=== PATIENT | male | born 1980 | race Caucasian/White ===

== ENCOUNTER 2019-06-20 00:34 | Emergency (ER) | payer MEDICARE, MEDICAID ==
--- NOTE | 2019-06-20 01:02 | ER Document Report ---
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 This is having hard to go to the bathroom today stubble starting and stopping and dribbling, and feeling like he still full after urinating. Little bit of burning as well. No penile lesions. Sexually active but no history of STIs. Mild super pubic discomfort but no fever or back pain. TRAVEL OUTSIDE OF THE [place] IN LAST 30 DAYS: No - Related Data Allergies/Adverse Reactions: amoxicillin [Amoxicillin] Allergy (Intermediate, Verified 06/20/19 00:35) rash Penicillins Allergy (Mild, Verified 06/20/19 00:35) rash Past Medical History - Social History Smoking Status: Current Every Day Smoker Drug Abuse: Marijuana Family History: Reviewed & Not Pertinent - Past Medical History Cardiac Medical History: Denies: Hx Coronary Artery Disease, Hx Heart Attack, Hx Hypertension Pulmonary Medical History: Denies: Hx Asthma, Hx Bronchitis, Hx COPD, Hx Pneumonia Neurological Medical History: Denies: Hx Cerebrovascular Accident, Hx Seizures Musculoskeletal Medical History: Denies Hx Arthritis Past Surgical History: Reports: Hx Tonsillectomy. Denies: Hx Pacemaker - Immunizations Hx Diphtheria, Pertussis, Tetanus Vaccination: Yes - denies pneumonia Review of Systems - Review of Systems Notes: REVIEW OF SYSTEMS GEN: Denies fever, chills, weight loss ENT: Denies sore throat, nasal discharge, ear pain EYES: Denies blurry vision, eye pain, discharge CV: Denies chest pain, palpitations, edema RESP: Denies cough, shortness of breath, wheezing GI: Suprapubic pain dysuria MSK: Denies joint pain/swelling, edema, SKIN: Denies rash, skin lesions LYMPH: Denies swollen glands/lymph nodes NEURO: Denies headache, focal weakness or numbness, dizziness PSYCH: Denies depression, suicidal or homicidal ideation PHYSICAL EXAMINATION General: No acute distress, well-nourished Head: Atraumatic, normocephalic ENT: Mouth normal, oropharynx moist, no exudates or tonsillar enlargement Eyes: Conjunctiva normal, pupils equal, lids normal Neck: No JVD, supple, no guarding CVS: Normal rate, regular rhythm, no murmurs Resp: No resp distress, equal and normal breath sounds bilaterally GI: Nondistended, soft, minimal superpubic tenderness to palpation, no rebound or guarding male: Normal penis and scrotum no discharge no tenderness no lymphadenopathy Ext: No deformities, no edema, normal range of motion in upper and lower ext Back: No CVA or midline TTP Skin: No rash, warm Lymphatic: No lymphadeopathy noted Neuro: Awake, alert. Face symmetric. GCS 15. Physical Exam - Vital signs Vitals: Temp Pulse Resp BP Pulse Ox 98.2 F 88 20 151/93 H 96 06/20/19 00:36 06/20/19 00:36 06/20/19 00:36 06/20/19 00:36 06/20/19 00:36 Course - Re-evaluation Re-evalutation: 06/20/19 02:43 Patient presents with urinary hesitancy and dysuria, sexually active. Post void normal. Likely bladder spasm/lower urinary tract irritation. His urinalysis is positive for white cells which likely reflects urethritis rather than a tooth true cystitis. We will treat with Rocephin and azithromycin "get gonorrhea chlamydia discharge. I have discussed with the patient there likely diagnosis, aftercare plan, follow-up plans and my usual and customary return precautions. They verbalized understanding of this. - Vital Signs Vital signs: Temp Pulse Resp BP Pulse Ox 98.2 F 88 20 151/93 H 96 06/20/19 00:36 06/20/19 00:36 06/20/19 00:36 06/20/19 00:36 06/20/19 00:36 - Laboratory Laboratory results interpreted by me: 06/20/19 02:13 Urine Protein 30 H Urine Ketones TRACE H Urine Blood SMALL H Urine Urobilinogen 2.0 H Ur Leukocyte Esterase MODERATE H Discharge - Discharge Clinical Impression: Dysuria Condition: Good Disposition: HOME, SELF-CARE Instructions: Urethritis ([facility]) Additional Instructions: We have sent chlamydia and gonorrhea testing for you and would not be ready for at least 24 hours. Please call for your results. Please use protection each time you have sex. Please return to the emergency room for worsening urinary problems or fever. Please follow-up with your regular doctor in 1 week. Referrals: ANISH NUNO DO [Primary Care Provider] - Follow up as needed
[2019-06-20] MEDS ORDERED: CEFTRIAXONE INJ 250 MG VIAL IM ONE (02:07)
[2019-06-20] MEDS ORDERED: AZITHROMYCIN 1 GM SUSP PACKET PO ONE (02:07)
[2019-06-20 02:33] LABS: APPEARANCE,URINE SLIGHTLY-CLOUDY; BILIRUBIN,URINE NEGATIVE (NEGATIVE); COLOR,URINE AMBER; GLUCOSE, URINE NEGATIVE (NEGATIVE); KETONES,URINE TRACE mg/dL (NEGATIVE); LEUKOCYTE ESTERASE,URINE MODERATE (NEGATIVE); NITRITE,URINE NEGATIVE (NEGATIVE); PROTEIN,URINE 30 mg/dL (NEGATIVE); URINE SPECIFIC GRAVITY 1.026
[2019-06-20 03:19] VITALS: BP 133/90
[2019-06-20 03:59] LABS: CHLAM PCR NOT DETECTED (NOT DETECT)
== END 2019-06-20 03:17 | disposition home or self-care (01) ==
LOC: ER 00:34
DX: R30.0 Dysuria (principal); R39.198 Other difficulties with micturition; R10.30 Lower abdominal pain, unspecified; F17.200 Nicotine dependence, unspecified, uncomplicated
CPT/HCPCS: 81001; 87491; 87591; A9270; J0696; Q0144

== ENCOUNTER → 2020-07-24 | Outpatient (CLI) | payer MEDICARE, MEDICAID ==
--- NOTE | 2020-07-24 16:34 | RADIOLOGY REPORT (SQ) ---
EXAM DESCRIPTION: LUMBAR SPINE COMPLETE IMAGES COMPLETED DATE/TIME: 07/24/2020 4:27 pm REASON FOR STUDY: DANIELA NEOPLM OF PRPH NERVES AND AUTONM NRV SYS OF TRUNK, UNSP D36.17 DANIELA NEOPLM OF PRPH NERVES AND AUTONM NRV SYS OF TRUNK COMPARISON: None. NUMBER OF VIEWS: Five views including obliques. TECHNIQUE: AP, lateral, oblique, and sacral radiographic images acquired of the lumbar spine. LIMITATIONS: None. FINDINGS: MINERALIZATION: Normal. SEGMENTATION: Normal. No transitional anatomy. ALIGNMENT: Normal. VERTEBRAE: Maintained height. No fracture or worrisome bone lesion. DISCS: Preserved height. No significant osteophytes or end plate irregularity. POSTERIOR ELEMENTS: Pedicles and facets are intact. No pars defect or posterior arch defects. HARDWARE: None in the spine. PARASPINAL SOFT TISSUES: Normal. PELVIS: Intact as visualized. No fractures or worrisome bone lesions. SI joints intact. OTHER: No other significant finding. IMPRESSION: NORMAL 5 VIEW LUMBAR SPINE. TECHNICAL DOCUMENTATION: JOB ID: [id number] 2010 [employer]- All Rights Reserved Reading location - IP/workstation name: [email or web address]
== END ==
LOC: OD 16:13
PROVIDERS: ATTEND Family Medicine
DX: D36.17 Benign neoplasm of peripheral nerves and autonomic nervous system of trunk, unspecified (principal)
CPT/HCPCS: 72110